=== PATIENT | female | born 2000 | race Caucasian/White ===

== ENCOUNTER → 2023-12-15 07:47 | Outpatient (REF) | payer BC, SELFPAY | LOC: HWRAD 07:47 | PROVIDERS: ATTENDING PHYSICIAN Student in an Organized Health Care Education/Training Program | DX: J18.9 Pneumonia, unspecified organism (principal) | CPT/HCPCS: 71046 ==

== ENCOUNTER 2024-01-24 13:27 | Outpatient (RCR) | payer BC, SELFPAY | END 2024-01-24 23:59 | disposition home or self-care (01) | LOC: RPT 13:27 | PROVIDERS: ATTENDING PHYSICIAN Orthopaedic Surgery; FAMILY PHYSICIAN Student in an Organized Health Care Education/Training Program | DX: M54.2 Cervicalgia (principal); M54.51 Vertebrogenic low back pain; Z73.6 Limitation of activities due to disability | CPT/HCPCS: 97110; 97162; 97530 ==

== ENCOUNTER 2024-02-21 16:14 | Outpatient (RCR) | payer BC, SELFPAY | END 2024-02-21 23:59 | disposition home or self-care (01) | LOC: RPT 16:14 | PROVIDERS: ATTENDING PHYSICIAN Orthopaedic Surgery; FAMILY PHYSICIAN Student in an Organized Health Care Education/Training Program | DX: M54.2 Cervicalgia (principal); M54.51 Vertebrogenic low back pain; Z73.6 Limitation of activities due to disability; M54.6 Pain in thoracic spine; G89.29 Other chronic pain | CPT/HCPCS: 97010; 97110; 97112; 97140 ==

== ENCOUNTER 2024-03-26 15:07 | Outpatient (RCR) | payer BC, SELFPAY | END 2024-03-26 23:59 | disposition home or self-care (01) | LOC: RPT 15:07 | PROVIDERS: ATTENDING PHYSICIAN Orthopaedic Surgery; FAMILY PHYSICIAN Student in an Organized Health Care Education/Training Program | DX: M54.2 Cervicalgia (principal); M54.51 Vertebrogenic low back pain; Z73.6 Limitation of activities due to disability | CPT/HCPCS: 97110; 97112; 97140 ==

== ENCOUNTER → 2024-04-10 13:33 | Outpatient (REF) | payer OTHER, BC, SELFPAY | LOC: MRI 3T 13:33 | PROVIDERS: ATTENDING PHYSICIAN Orthopaedic Surgery; FAMILY PHYSICIAN Student in an Organized Health Care Education/Training Program | DX: M23.92 Unspecified internal derangement of left knee (principal) | CPT/HCPCS: 27369; 73580; 73725 ==

== ENCOUNTER → 2024-07-22 15:26 | Outpatient (REF) | payer BC, SELFPAY | LOC: HWRAD 15:26 | PROVIDERS: ATTENDING PHYSICIAN Otolaryngology; FAMILY PHYSICIAN Student in an Organized Health Care Education/Training Program | DX: R05.3 Chronic cough (principal) | CPT/HCPCS: 71046 ==

== ENCOUNTER 2024-10-24 17:01 | Outpatient (RCR) | payer BC, SELFPAY | END 2024-10-24 23:59 | disposition home or self-care (01) | LOC: RPT 17:01 | PROVIDERS: ATTENDING PHYSICIAN Physician Assistant; FAMILY PHYSICIAN Student in an Organized Health Care Education/Training Program | DX: M54.59 Other low back pain (principal); M54.2 Cervicalgia; Z73.6 Limitation of activities due to disability; M62.81 Muscle weakness (generalized); R20.2 Paresthesia of skin | CPT/HCPCS: 97110; 97112; 97162; 97530 ==

== ENCOUNTER 2024-11-12 15:46 | Outpatient (RCR) | payer BC, SELFPAY | END 2024-11-12 23:59 | disposition home or self-care (01) | LOC: RPT 15:46 | PROVIDERS: ATTENDING PHYSICIAN Physician Assistant; FAMILY PHYSICIAN Student in an Organized Health Care Education/Training Program | DX: M54.59 Other low back pain (principal); M54.2 Cervicalgia; Z73.6 Limitation of activities due to disability; M62.81 Muscle weakness (generalized); R20.2 Paresthesia of skin | CPT/HCPCS: 97110; 97112; 97140 ==

== ENCOUNTER → 2025-01-24 06:43 | Outpatient (REF) | payer BC, SELFPAY ==
[2025-01-24 08:07] LABS: % Basophils 0.4 % (0-2); % Eosinophils 2.2 % (0-6); % Immature Granulocytes 0.4 % (0-0.5); % Lymphocytes 23.9 % (20.5-51.1); % Monocytes 6.3 % (1.7-9.3); % Neutrophils 66.8 % (42.2-75.2); Absolute Eosinophils 0.2 10^3/uL (0-0.7); Absolute Monocytes 0.5 10^3/uL (0.1-0.6); Absolute Neutrophils 5.7 10^3/uL (1.4-6.5); Hematocrit 39.6 % (37.0-47.0); Hemoglobin 13.5 g/dL (12.0-16.0); Mean Corp Hgb Conc. 34.1 g/dL (33.0-37.0); Mean Corpuscular Hgb 29.6 pg (27.0-31.0); Mean Corpuscular Volume 86.8 fL (81.0-99.0); Mean Platelet Volume 11.3 fL (7.4-10.4); Nucleated Red Blood Cells % 0 %; Platelet Count 233 10^3/uL (130-400); Red Blood Cell Count 4.56 10^6/uL (4.20-5.40); White Blood Cell Count 8.5 10^3/uL (4.8-10.8)
[2025-01-24 08:31] LABS: Glucose 91 mg/dl (70-99); HDL Cholesterol 43 mg/dl; LDL Cholesterol, Calculated 79 mg/dl; Total Cholesterol 141 mg/dl (50-199); Triglyceride 98 mg/dl (10-149); Very Low Density Lipoprotein 19 mg/dl (0-30)
[2025-01-24 08:34] LABS: Beta HCG Quantitative < 2.39 mIU/ml; FSH 4.4 mIU/ml; Prolactin 23.1 ng/ml (3.0-18.6)
[2025-01-24 08:48] LABS: TSH 3.48 uIU/ml (0.47-4.68)
[2025-01-24 08:50] LABS: Estradiol 58.9 pg/ml; Testosterone, Total 55.1 ng/dl
[2025-01-26 00:38] LABS: DHEA Sulfate 177 ug/dL (99-340)
== END ==
LOC: REG 06:43
PROVIDERS: ATTENDING PHYSICIAN Obstetrics & Gynecology; FAMILY PHYSICIAN Student in an Organized Health Care Education/Training Program
DX: N91.1 Secondary amenorrhea (principal)
CPT/HCPCS: 36415; 80061; 82627; 82670; 82947; 83001; 83002; 83036; 83525; 84146; 84270; 84402; 84403; 84443; 84702; 85025

== ENCOUNTER → 2025-02-05 08:12 | Outpatient (REF) | payer BC, SELFPAY | LOC: HWRAD 08:12 | PROVIDERS: ATTENDING PHYSICIAN Obstetrics & Gynecology; FAMILY PHYSICIAN Student in an Organized Health Care Education/Training Program | DX: N91.1 Secondary amenorrhea (principal) | CPT/HCPCS: 76830; 76856 ==

== ENCOUNTER 2025-02-21 07:29 | Outpatient (RCR) | payer BC, SELFPAY | END 2025-02-21 23:59 | disposition home or self-care (01) | LOC: RPT 07:29 | PROVIDERS: ATTENDING PHYSICIAN Orthopaedic Surgery; FAMILY PHYSICIAN Student in an Organized Health Care Education/Training Program | DX: S83.232D Complex tear of medial meniscus, current injury, left knee, subsequent encounter (principal); Z73.6 Limitation of activities due to disability; R26.89 Other abnormalities of gait and mobility; M62.81 Muscle weakness (generalized); M54.32 Sciatica, left side | CPT/HCPCS: 97110; 97161 ==

== ENCOUNTER 2025-03-27 15:51 | Outpatient (RCR) | payer BC, SELFPAY | END 2025-03-27 23:59 | disposition home or self-care (01) | LOC: RPT 15:51 | PROVIDERS: ATTENDING PHYSICIAN Orthopaedic Surgery; FAMILY PHYSICIAN Student in an Organized Health Care Education/Training Program | DX: S83.232D Complex tear of medial meniscus, current injury, left knee, subsequent encounter (principal); Z73.6 Limitation of activities due to disability; R26.89 Other abnormalities of gait and mobility; M62.81 Muscle weakness (generalized); M54.32 Sciatica, left side | CPT/HCPCS: 97110; 97112; 97140; 97530 ==

== ENCOUNTER → 2025-04-15 08:03 | Outpatient (REF) | payer BC, SELFPAY | LOC: REG 08:03 | PROVIDERS: ATTENDING PHYSICIAN Obstetrics & Gynecology; FAMILY PHYSICIAN Student in an Organized Health Care Education/Training Program | DX: N91.2 Amenorrhea, unspecified (principal) | CPT/HCPCS: 36415; 84146 ==

== ENCOUNTER 2025-04-23 06:55 | Outpatient (RCR) | payer BC, SELFPAY | END 2025-04-23 23:59 | disposition home or self-care (01) | LOC: RPT 06:55 | PROVIDERS: ATTENDING PHYSICIAN Orthopaedic Surgery; FAMILY PHYSICIAN Student in an Organized Health Care Education/Training Program | DX: S83.232D Complex tear of medial meniscus, current injury, left knee, subsequent encounter (principal); Z73.6 Limitation of activities due to disability; R26.89 Other abnormalities of gait and mobility; M62.81 Muscle weakness (generalized); M54.32 Sciatica, left side | CPT/HCPCS: 97110; 97530 ==